=== PATIENT | male | born 1990 | race Caucasian/White ===

== ENCOUNTER 2018-08-17 19:07 | Emergency (ER) | payer BC ==
[2018-08-17] MEDS ORDERED: Ketorolac 30 MG/ML SDV IVPUSH ONE (20:01)
[2018-08-17] MEDS ORDERED: Sodium Chloride 0.9% 1,000 ML IV ONE (20:01)
--- NOTE | 2018-08-17 20:02 | EDM.PDOC ---
ED HPI GENERAL MEDICAL PROBLEM - General Chief Complaint: Abdominal Pain Stated Complaint: PAIN ON LEFT LOWER SIDE Time Seen by Provider: 08/17/18 20:02 Source of Information: Reports: Patient - History of Present Illness INITIAL COMMENTS - FREE TEXT/NARRATIVE: HISTORY AND PHYSICAL: History of present illness: [Patient presents with left sided flank pain 5 out of 10 nonradiating no pain behaviors no fever nausea vomiting chills sweats no chest pain shortness breath headache dizziness palpitation no bowel or urine symptoms Patient recently was seen at [facility] for bronchitis and was diagnosed with muscle spasm can reproduce pain on lower rib margins consistent with this Patient is worried well he requests lab and she may have a pneumonia Secondarily he is running out of his hypertension medications and plans to follow with a supervisor sample preparation on return to [place] in one week for management ] Review of systems: As per history of present illness and below otherwise all systems reviewed and negative. Past medical history: As per history of present illness and as reviewed below otherwise noncontributory. Surgical history: As per history of present illness and as reviewed below otherwise noncontributory. Social history: No reported history of drug or alcohol abuse. Family history: As per history of present illness and as reviewed below otherwise noncontributory. Physical exam: HEENT: Atraumatic, normocephalic, pupils reactive, negative for conjunctival pallor or scleral icterus, mucous membranes moist, throat clear, neck supple, nontender, trachea midline. Lungs: Clear to auscultation, breath sounds equal bilaterally, chest nontender. Heart: S1S2, regular, negative for clicks, rubs, or JVD. Abdomen: Soft, nondistended, nontender. Negative for masses or hepatosplenomegaly. Negative for costovertebral tenderness. Pelvis: Stable nontender. Genitourinary: Deferred. Rectal: Deferred. Extremities: Atraumatic, negative for cords or calf pain. Neurovascular unremarkable. Neuro: Awake, alert, oriented. Cranial nerves II through XII unremarkable. Cerebellum unremarkable. Motor and sensory unremarkable throughout. Exam nonfocal. Diagnostics: [CBC CMP UA ]Chest 1 view [employer]: [Normal saline Toradol 30 mg IV A shunt refused above treatments Rest ice ibuprofen Prescriptions for lisinopril and Norvasc provided for 2 weeks until he follows up with his primary care/supervisor sample preparation ] Impression: Muscle spasm Definitive disposition and diagnosis as appropriate pending reevaluation and review of above. abdomen Pain Score (Numeric/FACES): 5 - Related Data Allergies Allergy/AdvReac Type Severity Reaction Status Date / Time amoxicillin [From Augmentin] Allergy Vomiting Verified 08/17/18 19:35 clavulanic acid Allergy Vomiting Verified 08/17/18 19:35 [From Augmentin] Home Meds: Home Meds Lisinopril 1 tab PO DAILY 08/17/18 [History] amLODIPine [Norvasc] 1 tab PO DAILY 08/17/18 [History] Past Medical History Cardiovascular History: Reports: Hypertension Social & Family History - Family History Family Medical History: Noncontributory - Tobacco Use Smoking Status *Q: Never Smoker - Recreational Drug Use Recreational Drug Use: No ED ROS GENERAL - Review of Systems Review Of Systems: See Below ED EXAM, GENERAL - Physical Exam Exam: See Below Course - Vital Signs Last Recorded V/S: Last Vital Signs Temp 97.9 F 08/17/18 19:30 Pulse 95 08/17/18 19:30 Resp 18 08/17/18 19:30 BP 145/78 H 08/17/18 19:30 Pulse Ox 94 L 08/17/18 19:30 - Orders/Labs/Meds Labs: Laboratory Tests 08/17/18 08/17/18 08/17/18 Range/Units 19:50 20:02 20:14 WBC 14.51 H (4.0-11.0) K/uL RBC 5.46 (4.50-5.90) M/uL Hgb 15.5 (13.0-17.0) g/dL Hct 44.4 (38.0-50.0) % MCV 81.3 (80.0-98.0) fL MCH 28.4 (27.0-32.0) pg MCHC 34.9 (31.0-37.0) g/dL RDW Std Deviation 40.3 (28.0-62.0) fl RDW Coeff of Ashlyn 14 (11.0-15.0) % Plt Count 288 (150-400) K/uL MPV 10.30 (7.40-12.00) fL Neut % (Auto) 73.3 (48.0-80.0) % Lymph % (Auto) 16.5 (16.0-40.0) % [place]assen % (Auto) 8.8 (0.0-15.0) % Eos % (Auto) 1.3 (0.0-7.0) % Baso % (Auto) 0.1 (0.0-1.5) % Neut # (Auto) 10.6 H (1.4-5.7) K/uL Lymph # (Auto) 2.4 (0.6-2.4) K/uL Lassen # (Auto) 1.3 H (0.0-0.8) K/uL Eos # (Auto) 0.2 (0.0-0.7) K/uL Baso # (Auto) 0.0 (0.0-0.1) K/uL Sodium (136-148) mmol/L Potassium (3.5-5.1) mmol/L Chloride (98-107) mmol/L Carbon Dioxide (21.0-32.0) mmol/L BUN (7.0-18.0) mg/dL Creatinine (0.8-1.3) mg/dL Est Cr Clr Drug Dosing mL/min Estimated GFR (MDRD) ml/min Glucose (74-106) mg/dL Calcium (8.5-10.1) mg/dL Total Bilirubin (0.2-1.0) mg/dL AST (15-37) IU/L ALT (14-63) IU/L Alkaline Phosphatase (46-116) U/L Total Protein (6.4-8.2) g/dL Albumin (3.4-5.0) g/dL Globulin (2.6-4.0) g/dL Albumin/Globulin Ratio (0.9-1.6) Lipase 78 (73-393) U/L Urine Color YELLOW Urine Appearance CLEAR Urine pH 5.5 (5.0-8.0) Ur Specific [place] 1.010 (1.001-1.035) Urine Protein NEGATIVE (NEGATIVE) mg/dL Urine Glucose (UA) NEGATIVE (NEGATIVE) mg/dL Urine Ketones NEGATIVE (NEGATIVE) mg/dL Urine Occult Blood NEGATIVE (NEGATIVE) Urine Nitrite NEGATIVE (NEGATIVE) Urine Bilirubin NEGATIVE (NEGATIVE) Urine Urobilinogen 0.2 (<2.0) EU/dL Ur Leukocyte Esterase NEGATIVE (NEGATIVE) 08/17/18 Range/Units 20:14 WBC (4.0-11.0) K/uL RBC (4.50-5.90) M/uL Hgb (13.0-17.0) g/dL Hct (38.0-50.0) % MCV (80.0-98.0) fL MCH (27.0-32.0) pg MCHC (31.0-37.0) g/dL RDW Std Deviation (28.0-62.0) fl RDW Coeff of Ashlyn (11.0-15.0) % Plt Count (150-400) K/uL MPV (7.40-12.00) fL Neut % (Auto) (48.0-80.0) % Lymph % (Auto) (16.0-40.0) % [place] % (Auto) (0.0-15.0) % Eos % (Auto) (0.0-7.0) % Baso % (Auto) (0.0-1.5) % Neut # (Auto) (1.4-5.7) K/uL Lymph # (Auto) (0.6-2.4) K/uL [place]assen # (Auto) (0.0-0.8) K/uL Eos # (Auto) (0.0-0.7) K/uL Baso # (Auto) (0.0-0.1) K/uL Sodium 141 (136-148) mmol/L Potassium 3.7 (3.5-5.1) mmol/L Chloride 105 (98-107) mmol/L Carbon Dioxide 25.3 (21.0-32.0) mmol/L BUN 19 H (7.0-18.0) mg/dL Creatinine 1.1 (0.8-1.3) mg/dL Est Cr Clr Drug Dosing 98.19 mL/min Estimated GFR (MDRD) > 60.0 ml/min Glucose 101 (74-106) mg/dL Calcium 9.0 (8.5-10.1) mg/dL Total Bilirubin 0.3 (0.2-1.0) mg/dL AST 13 L (15-37) IU/L ALT 51 (14-63) IU/L Alkaline Phosphatase 115 (46-116) U/L Total Protein 7.6 (6.4-8.2) g/dL Albumin 3.6 (3.4-5.0) g/dL Globulin 4.0 (2.6-4.0) g/dL Albumin/Globulin Ratio 0.9 (0.9-1.6) Lipase (73-393) U/L Urine Color Urine Appearance Urine pH (5.0-8.0) Ur Specific [place] (1.001-1.035) Urine Protein (NEGATIVE) mg/dL Urine Glucose (UA) (NEGATIVE) mg/dL Urine Ketones (NEGATIVE) mg/dL Urine Occult Blood (NEGATIVE) Urine Nitrite (NEGATIVE) Urine Bilirubin (NEGATIVE) Urine Urobilinogen (<2.0) EU/dL Ur Leukocyte Esterase (NEGATIVE) Meds: Medications Discontinued Medications Generic Name Dose Route Start Last Admin Trade Name Freq PRN Reason Stop Dose Admin Sodium Chloride 1,000 mls @ 999 mls/hr 08/17/18 20:01 08/17/18 20:23 Normal Saline IV 08/17/18 21:01 Not Given STAT ONE Ketorolac Tromethamine 30 mg 08/17/18 20:01 08/17/18 20:23 Toradol IVPUSH 08/17/18 20:02 Not Given ONETIME ONE Departure - Departure Time of Disposition: 21:51 Disposition: Home, Self-Care 01 Condition: Good Clinical Impression: Hypertension, Worried well, Muscle spasm - Discharge Information Referrals: PCP,None [Primary Care Provider] - Forms: ED Department Discharge Additional Instructions: The following information is given to patients seen in the emergency department who are being discharged to home. This information is to outline your options for follow-up care. We provide all patients seen in our emergency department with a follow-up referral. The need for follow-up, as well as the timing and circumstances, are variable depending upon the specifics of your emergency department visit. If you don't have a primary care physician on staff, we will provide you with a referral. We always advise you to contact your personal physician following an emergency department visit to inform them of the circumstance of the visit and for follow-up with them and/or the need for any referrals to a consulting specialist. The emergency department will also refer you to a specialist when appropriate. This referral assures that you have the opportunity for follow-up care with a specialist. All of these measure are taken in an effort to provide you with optimal care, which includes your follow-up. Under all circumstances we always encourage you to contact your private physician who remains a resource for coordinating your care. When calling for follow-up care, please make the office aware that this follow-up is from your recent emergency room visit. If for any reason you are refused follow-up, please contact the [facility] emergency department at and asked to speak to the emergency department charge nurse.
[2018-08-17 20:54] LABS: CHLORIDE,CL 105 mmol/L (98-107); SODIUM,NA 141 mmol/L (136-148)
--- NOTE | 2018-08-17 21:42 | CR ---
INDICATION: Pain and shortness of breath. TECHNIQUE: Chest 1 view COMPARISON: None FINDINGS: Cardiovascular and mediastinum: Heart size and vasculature are normal in caliber and appearance. Lungs and pleural spaces: Lungs are clear. No sign of infiltrate or mass. No sign of pleural effusion. No pneumothorax. Bones and soft tissues: No significant findings. IMPRESSION: No acute or significant findings. Dictated by Rajesh Kay MD @ Aug 17 2018 9:41PM Signed by Dr. Rajesh Kay @ Aug 17 2018 9:42PM
--- NOTE | 2018-08-17 21:44 | CR ---
Indication: Abdomen pain Technique: Abdomen 1 view. Comparison: None. Findings: Bowel: Bowel pattern is normal. The amount of colonic stool is within normal limits. Other: No sign of free air. No sign of soft tissue mass. No suspicious calcifications. Osseous structures are unremarkable for age. Impression: Unremarkable abdomen. Dictated by Rajesh Kay MD @ Aug 17 2018 9:42PM Signed by Dr. Rajesh Kay @ Aug 17 2018 9:42PM
== END 2018-08-17 22:20 | disposition home or self-care (01) ==
LOC: MW.ED 19:07
DX: M62.838 Other muscle spasm (principal); R10.9 Unspecified abdominal pain; I10 Essential (primary) hypertension; Z88.1 Allergy status to other antibiotic agents; Z79.899 Other long term (current) drug therapy
CPT/HCPCS: 36415; 71045; 71045-26; 74018; 74018-26; 80053; 81003; 83690; 85025; 99284-25